=== PATIENT | female | born 1935 | race Caucasian/White ===

== ENCOUNTER → 2016-12-31 | Outpatient (CLI) | payer MEDICARE ==
[~2016-12-31] MED LIST: ASPI325T PO; AZOR5TAB2 PO; CALC-137 PO; CHOL50006 PO; CROM5.2S; DENO60P SC; LORTA5 PO; METO50CR PO; POTA99TA12 PO; PROT40TA PO; TAB-TAB PO; Z.0.WALKERFRONT; ZETI10TA5 PO; ZOFR4TAB3 SL
[2016-12-31 12:32] LABS: HDL CHOLESTEROL 44.8 MG/DL (40.0-60.0)
== END ==
LOC: ELAB 10:26
PROVIDERS: ATTEND Family Medicine
DX: E78.2 Mixed hyperlipidemia (principal)
CPT/HCPCS: 36415; 80061

== ENCOUNTER 2017-08-19 20:44 | Observation (INO) | payer MEDICARE ==
[~2017-08-19] VITALS: Ht 162.6 cm; Wt 75.0 kg
[2017-08-19 20:45] VITALS: BP 224/98; PULSE 102; RESP 18; TEMP 98.2; O2SAT 97
[2017-08-19 20:55] VITALS: RESP 18; O2SAT 97
[2017-08-19] MEDS ORDERED: SODIUM CHLORIDE 0.9% FLUSH 10 ML FLUSH IVF PRN (21:00)
--- NOTE | 2017-08-19 21:01 | PD ---
HPI Chief Complaint: Cardiac Complaint Time Seen by Provider: 20:52 Travel History International Travel<30 days: No Contact w/Intl Traveler<30days: No Traveled to known affect area: No History of Present Illness HPI 82-year-old female presents to the emergency department from home by EMS transport for evaluation of palpitations. According the patient and the paramedics patient was in her usual state of fair health when this evening after dinner around 7 PM she started noticing palpitations. Patient has history of palpitations. Patient states due to the duration of her palpitations she decided to call EMS to be evaluated. Upon EMS arrival patient was found to be in bigeminy with a sinus tachycardia which resolves spontaneously and then in route had 3 sequential unifocal PVCs. Patient denies having any chest pain or shortness of breath. Patient denies any referred neck jaw back shoulder arm mid scapular abdominal pain. Patient denies any recent long distance travel protracted bedrest or surgical procedure. Patient does have history of hypertension and has not taken her evening dose of metoprolol or lisinopril. Patient also has history of left-sided breast cancer that has been monitored by Dr. Schmid and continues to take Anastrozole. Patient was last seen by her oncologist May 2017. Patient states yesterday she thought she was developing a respiratory illness with sore throat, cough, and congestion. Patient has not had these symptoms today. Patient did not have influenza vaccine for this season. Patient was identified en route to be hypertensive. Patient also has history of GERD basal cell skin cancer dyslipidemia*arthritis osteoporosis pulmonary embolism postsurgical 1998 appendectomy left breast lumpectomy left breast biopsy radiation left breast and pelvis tonsillectomy and adenoidectomy colonoscopy partial thyroidectomy left knee replacement hysterectomy tubal ligation. Patient reports multiple antibiotic allergies. 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 Patient feels well at this time and reports that she feels that she can be discharged to home. [facility] Past Medical History Narrative Medical GERD basal cell skin cancer dyslipidemia*arthritis osteoporosis pulmonary embolism postsurgical 1998 appendectomy left breast lumpectomy left breast biopsy radiation left breast and pelvis tonsillectomy and adenoidectomy colonoscopy partial thyroidectomy left knee replacement hysterectomy tubal ligation; nursing notes reviewed. Cancer: Yes (skin cancers) Cardiovascular Problems: Yes (occ pvc) High Cholesterol: Yes Diabetes: No Diminished Hearing: No Endocrine: Yes Gastrointestinal Disorders: Yes (reflux) GERD: Yes Genitourinary: Yes (cystitis in the past man yrs ago ) Hepatitis: No Hiatal Hernia: Yes (small) Hypertension: Yes Immune Disorder: No Musculoskeletal: Yes (back and neck problems arthritis) Neurologic: No Psychiatric: No Reproductive: No Respiratory: Yes (hx of pulmonary embolous) Thyroid Disease: Yes Tubal Ligation: Yes Past Surgical History Abdominal Surgery: Yes (appendectomy) AICD: No Appendectomy: Yes Body Medical Devices: vega lens implants Endocrine Surgery: Yes (partial thyroidectomy) Eye Surgery: Yes (vega cataract removal ) Gynecologic Surgery: Yes (partial hysterectomy tubaligation) Hysterectomy: Yes Joint Replacement: No Oral Surgery: Yes (t and a) Pacemaker: No Tonsillectomy: Yes Other Surgery: Yes Social History Alcohol Use: No Tobacco Use: No Substance Use: No Allergies-Medications (Allergen,Severity, Reaction): Coded Allergies: cefepime (Unverified Allergy, Severe, gi upset, 08/19/17) ceftaroline fosamil (Unverified Allergy, Severe, gi upset, 08/19/17) cyclosporine (Unverified Allergy, Severe, severe gi upset, 08/19/17) erythromycin base (Unverified Allergy, Intermediate, VOMITINIG, 08/19/17) Sulfa (Sulfonamide Antibiotics) (Unverified Allergy, Mild, HIVES, 08/19/17) doxycycline (Unverified Allergy, Mild, HIVES, 08/19/17) GI UPSET minocycline (Unverified Allergy, Mild, HIVES, 08/19/17) GI UPSET nitrofurantoin (Unverified Allergy, Mild, HIVES, 08/19/17) penicillin G (Unverified Allergy, Mild, HIVES, 08/19/17) tigecycline (Unverified Allergy, Mild, HIVES, 08/19/17) GI UPSET Reported Meds & Prescriptions Reported Meds & Active Scripts Active Reported [Potassium 99 Mg Tab] 99 Mg PO DAILY Prolia Inj (Denosumab) 60 Mg/Ml Inj 60 Mg SQ Q180D Vitamin D-1000 (Cholecalciferol) 1,000 Unit Tab 2,000 Units PO BID Calcium (Calcium Carbonate) 600 Mg Calcium (1500 Mg) Tab 1,200 Mg PO BID Preservision Areds (Multiple Vitamins W/ Minerals) 1 Tab 1 Tab PO BID Pantoprazole (Pantoprazole Sodium) 40 Mg Tab 40 Mg PO DAILY Anastrozole 1 Mg Tab 1 Mg PO HS Amlodipine (Amlodipine Besylate) 5 Mg Tab 5 Mg PO DAILY Lisinopril 20 Mg Tab 20 Mg PO BID Metoprolol Succinate ER 24 HR (Metoprolol Succinate) 100 Mg Tab 100 Mg PO DAILY Review of Systems Except as stated in HPI: all other systems reviewed are Neg Physical Exam Narrative GENERAL: Well-developed well-nourished female in no acute distress no respiratory distress SKIN: Warm and dry. HEAD: Normocephalic. EYES: No scleral icterus. No injection or drainage. NECK: Supple, trachea midline. No JVD or lymphadenopathy. CARDIOVASCULAR: Regular rate and rhythm without murmurs, gallops, or rubs. RESPIRATORY: Breath sounds equal bilaterally. No accessory muscle use. GASTROINTESTINAL: Abdomen soft, non-tender, nondistended. MUSCULOSKELETAL: No cyanosis, or edema. BACK: Nontender without obvious deformity. No CVA tenderness. Data Data Last Documented VS Vital Signs Date Time Temp Pulse Resp B/P (MAP) Pulse Ox O2 Delivery O2 Flow Rate FiO2 08/19/17 23:01 88 18 174/80 (111) 96 Room Air 08/19/17 20:45 98.2 Orders Orders Electrocardiogram (08/19/17 20:53) Complete Blood Count With Diff (08/19/17 20:53) Comprehensive Metabolic Panel (08/19/17 20:53) Magnesium (Mg) (08/19/17 20:53) Ckmb (Isoenzyme) Profile (08/19/17 20:53) Troponin I (08/19/17 20:53) Act Partial Throm Time (Ptt) (08/19/17 20:53) Prothrombin Time / Inr (Pt) (08/19/17 20:53) Urinalysis - C+S If Indicated (08/19/17 20:53) Chest, Single Ap (08/19/17 20:53) Ecg Monitoring (08/19/17 20:53) Iv Access Insert/Monitor (08/19/17 20:53) Oximetry (08/19/17 20:53) Sodium Chloride 0.9% Flush (Ns Flush) (08/19/17 21:00) Lactic Acid (08/19/17 20:54) Influenzae A/B Antigen (08/19/17 20:54) Thyroid Stimulating Hormone (08/19/17 20:53) Aspirin Chew (Aspirin Chew) (08/19/17 21:45) Potassium Chloride (Kcl) (08/19/17 23:45) Sodium Chlorid 0.9% 500 Ml Inj (Ns 500 M (08/19/17 23:45) Metoprolol Succinate Er (Toprol Xl) (08/19/17 23:45) Enalaprilat Inj (Vasotec Inj) (08/20/17 00:15) Labetalol Inj (Trandate Inj) (08/20/17 01:15) Admit Order (Ed Use Only) (08/20/17 ) Water Filter Cleaner / Telemetry [id number] (08/20/17 01:12) Activity Oob With Assistance (08/20/17 01:12) Notify Dr: Other (08/20/17 01:12) Labs Laboratory Tests Test 08/19/17 21:10 08/19/17 21:11 08/19/17 21:17 Lactic Acid Level 1.5 mmol/L White Blood Count 8.9 TH/MM3 Red Blood Count 3.91 MIL/MM3 Hemoglobin 11.3 GM/DL Hematocrit 34.1 % Mean Corpuscular Volume 87.2 FL Mean Corpuscular Hemoglobin 28.8 PG Mean Corpuscular Hemoglobin Concent 33.1 % Red Cell Distribution Width 14.4 % Platelet Count 178 TH/MM3 Mean Platelet Volume 9.5 FL Neutrophils (%) (Auto) 62.3 % Lymphocytes (%) (Auto) 25.8 % Monocytes (%) (Auto) 9.2 % Eosinophils (%) (Auto) 1.8 % Basophils (%) (Auto) 0.9 % Neutrophils # (Auto) 5.6 TH/MM3 Lymphocytes # (Auto) 2.3 TH/MM3 Monocytes # (Auto) 0.8 TH/MM3 Eosinophils # (Auto) 0.2 TH/MM3 Basophils # (Auto) 0.1 TH/MM3 CBC Comment DIFF FINAL Differential Comment Prothrombin Time 9.9 SEC Prothromb Time International Ratio 1.0 RATIO Activated Partial Thromboplast Time 23.6 SEC Blood Urea Nitrogen 26 MG/DL Creatinine 1.28 MG/DL Random Glucose 153 MG/DL Total Protein 6.8 GM/DL Albumin 3.5 GM/DL Calcium Level 9.6 MG/DL Magnesium Level 1.8 MG/DL Alkaline Phosphatase 105 U/L Aspartate Amino Transf (AST/SGOT) 14 U/L Alanine Aminotransferase (ALT/SGPT) 23 U/L Total Bilirubin 0.4 MG/DL Sodium Level 140 MEQ/L Potassium Level 3.2 MEQ/L Chloride Level 101 MEQ/L Carbon Dioxide Level 30.4 MEQ/L Anion Gap 9 MEQ/L Estimat Glomerular Filtration Rate 40 ML/MIN Total Creatine Kinase 73 U/L Troponin I LESS THAN 0.02 NG/ML Thyroid Stimulating Hormone 3rd Gen 3.880 uIU/ML Urine Color LIGHT-YELLOW Urine Turbidity CLEAR Urine pH 7.0 Urine Specific [place] 1.006 Urine Protein NEG mg/dL Urine Glucose (UA) NEG mg/dL Urine Ketones NEG mg/dL Urine Occult Blood NEG Urine Nitrite NEG Urine Bilirubin NEG Urine Urobilinogen LESS THAN 2.0 MG/DL Urine Leukocyte Esterase SMALL Urine RBC LESS THAN 1 /hpf Urine WBC 2 /hpf Urine Bacteria RARE /hpf Microscopic Urinalysis Comment CULT NOT INDICATED MDM Medical Decision Making Medical Screen Exam Complete: Yes Emergency Medical Condition: Yes Medical Record Reviewed: Yes Interpretation(s) EKG: Sinus tachycardia first-degree AV block no acute ST elevation nonspecific ST segment flattening Differential Diagnosis Palpitations, arrhythmia, electrolyte disturbance, ACS, MO, PE, pneumonia, sepsis, influenza Narrative Course Patient placed on manager monitoring with continuous pulse oximetry; specimens collected and sent for resulting; EKG performed reveals no acute ST elevation or ectopy at this time. We'll obtain repeat blood pressure as patient hypertensive upon arrival. Patient has not taken evening antihypertensive medications as of this time. Patient with hypokalemia In view of duration of symptoms which is atypical for her unclear etiology to explain duration of bigeminy will admit for observation for further evaluation and serial enzymes; case discussed with Dr. White Physician Communication Physician Communication discussed with [facility] for obs Diagnosis Primary Impression: Bigeminy Admitting Information Admitting Physician Requests: Observation Toña Seo MD Aug 19, 2017 21:01
[2017-08-19] MEDS ORDERED: VITA1000 PO (21:02)
[2017-08-19] MEDS ORDERED: DENO60P SQ (21:02)
[2017-08-19] MEDS ORDERED: METO1TAB43 PO (21:02)
[2017-08-19] MEDS ORDERED: PANT40TA3 PO (21:02)
[2017-08-19] MEDS ORDERED: CALC600T5 PO (21:02)
[2017-08-19] MEDS ORDERED: ANAS1TAB PO (21:02)
[2017-08-19] MEDS ORDERED: AMLO5TAB2 PO (21:02)
[2017-08-19] MEDS ORDERED: LISI-515 PO (21:02)
[2017-08-19] MEDS ORDERED: OCUVTAB4 PO (21:02)
[2017-08-19] MEDS ORDERED: POTASSIUM 99 MG TAB PO (21:03)
[2017-08-19 21:25] LABS: AUTOMATED NEUTROPHIL # 5.6 TH/MM3 (1.8-7.7); BASOPHIL # 0.1 TH/MM3 (0-0.2); BASOPHIL % 0.9 % (0.0-2.0); EOSINOPHIL # 0.2 TH/MM3 (0-0.4); EOSINOPHIL % 1.8 % (0.0-4.0); HEMATOCRIT 34.1 % (35.0-46.0); HEMOGLOBIN 11.3 GM/DL (11.6-15.3); LYMPH % 25.8 % (9.0-44.0); LYMPHOCYTE # 2.3 TH/MM3 (1.0-4.8); MEAN CELL VOLUME 87.2 FL (80.0-100.0); MEAN CORPUSCULAR HEMOGLOBIN 28.8 PG (27.0-34.0); MEAN CORPUSCULAR HGB CONC 33.1 % (32.0-36.0); MEAN PLATELET VOLUME 9.5 FL (7.0-11.0); MONO % 9.2 % (0.0-8.0); MONOCYTE # 0.8 TH/MM3 (0-0.9); NEUT % 62.3 % (16.0-70.0); PLATELET COUNT 178 TH/MM3 (150-450); RED BLOOD COUNT 3.91 MIL/MM3 (4.00-5.30); RED CELL DISTRIBUTION WIDTH 14.4 % (11.6-17.2); WHITE BLOOD COUNT 8.9 TH/MM3 (4.0-11.0)
[2017-08-19 21:38] LABS: PROTHROMBIN TIME - PATIENT 9.9 SEC (9.8-11.6)
[2017-08-19] MEDS ORDERED: ASPIRIN 81 MG CHEW TAB CHEW ONE (21:45)
[2017-08-19 21:52] LABS: BACTERIA, URINE RARE /hpf; BILIRUBIN, URINE NEG (NEG); BLOOD, URINE NEG (NEG); GLUCOSE,URINE NEG (NEG); KETONE, URINE NEG (NEG); NITRITE,URINE NEG (NEG); URINE COLOR LIGHT-YELLOW (YELLW/STRAW); URINE LEUKOCYTE ESTERASE SMALL (NEG)
[2017-08-19 21:53] LABS: ALBUMIN 3.5 GM/DL (3.4-5.0); AST (GOT) 14 U/L (15-37); BICARBONATE 30.4 MEQ/L (21.0-32.0); BLOOD UREA NITROGEN 26 MG/DL (7-18); CALCIUM 9.6 MG/DL (8.5-10.1); CHLORIDE 101 MEQ/L (98-107); CREATININE 1.28 MG/DL (0.50-1.00); GLOMERULAR FILTRATION RATE 40 ML/MIN (>89); GLUCOSE,RANDOM 153 MG/DL (74-106); MAGNESIUM 1.8 MG/DL (1.5-2.5); SODIUM (NA) 140 MEQ/L (136-145)
[2017-08-19 21:54] LABS: ALT (GPT) 23 U/L (10-53)
--- NOTE | 2017-08-19 21:54 | RADRPT ---
EXAM DATE/TIME: 08/19/2017 21:23 [place] COMPARISON: No previous studies available for comparison. INDICATIONS : Heart palpitations. MEDICAL HISTORY : Carcinoma, breast. Pulmonary embolism. SURGICAL HISTORY : Left breast, lumpectomy. ENCOUNTER: Initial ACUITY: 1 day PAIN SCORE: 0/10 LOCATION: chest FINDINGS: Single AP view of the chest. The lungs are clear. Cardiomediastinal silhouette within normal limits. No evidence of pleural effusion or pneumothorax. CONCLUSION: No acute cardiopulmonary disease identified. Ariel Bennett MD on August 19, 2017 at 21:51 Board Certified Radiologist. This report was verified electronically.
[2017-08-19 22:04] LABS: ALKALINE PHOSPHATASE 105 U/L (45-117); TOTAL BILIRUBIN ADULT 0.4 MG/DL (0.2-1.0); TOTAL PROTEIN 6.8 GM/DL (6.4-8.2); TROPONIN I LESS THAN 0.02 NG/ML (0.02-0.05)
[2017-08-19 23:01] VITALS: BP 174/80; PULSE 88; RESP 18; O2SAT 96
[2017-08-19] MEDS ORDERED: METOPROLOL SUCCINATE 50 MG EXTENDED RELEASE TAB PO ONE (23:45)
[2017-08-19] MEDS ORDERED: LISINOPRIL 20 MG TAB PO ONE (23:45)
[2017-08-19] MEDS ORDERED: POTASSIUM CHLORIDE 20 MEQ CONTROLLED RELEASE TAB PO ONE (23:45)
[2017-08-19] MEDS ORDERED: SODIUM CHLORID 0.9% 500 ML INJ 500 ML IV ONE (23:45)
[2017-08-20] VITALS (10 sets, daily range): BP systolic 171–195; BP diastolic 73–86; PULSE 66–81; RESP 16–22; TEMP 97.8–98.6; O2SAT 96–99
[2017-08-20] MEDS ORDERED: ENALAPRILAT 1.25 MG/ML VIAL IV PUSH ONE (00:15)
[2017-08-20] MEDS ORDERED: LABETALOL HCL 100 MG/20 ML VIAL IV PUSH ONE (01:15)
[2017-08-20] MEDS ORDERED: BISACODYL 10 MG SUPP RECTAL PRN (01:30)
[2017-08-20] MEDS ORDERED: ACETAMINOPHEN 325 MG TAB PO PRN (01:30)
[2017-08-20] MEDS ORDERED: ONDANSETRON HCL 4 MG/2 ML VIAL IVP PRN (01:30)
[2017-08-20] MEDS ORDERED: METOPROLOL TARTRATE 50 MG TAB PO ONE (01:30)
[2017-08-20] MEDS ORDERED: MAGNESIUM HYDROXIDE SUSP 30 ML CUP PO PRN (01:30)
[2017-08-20] MEDS ORDERED: ACETAMINOPHEN/HYDROcodone 325 MG/5 MG TAB PO PRN (01:30)
[2017-08-20] MEDS ORDERED: SENNOSIDES 8.6 MG TAB PO PRN (01:30)
[2017-08-20] MEDS ORDERED: ACETAMINOPHEN/HYDROcodone 325 MG/10 MG TAB PO PRN (01:30)
[2017-08-20] MEDS ORDERED: LACTULOSE SYRUP 20 GM/30 ML CUP PO PRN (01:30)
[2017-08-20] MEDS ORDERED: SODIUM CHLORIDE 0.9% FLUSH 10 ML FLUSH IV FLUSH PRN (01:30)
--- NOTE | 2017-08-20 02:56 | HHI.HP ---
[facility] Rita Edmondson MD Admission Diagnosis palpitations; hypokalemia; htn Diagnoses: (1) Palpitations Diagnosis: Principal (2) Hypokalemia Diagnosis: Principal (3) Renal insufficiency Diagnosis: Principal (4) HTN (hypertension) Diagnosis: Principal Travel History International Travel<30 Days: No Contact w/Intl Traveler <30 Da: No Traveled to Known Affected Are: No History of Present Illness This is an 82-year-old female with a PMH of HTN, Hyperlipidemia, Breast CA and h /o Skin Cancer who was brought to the ER by EMS secondary to c/o palpitations. Pt reports previous history of palpitations w/ abnormal EKG for which she follows w/ Dr. Peguero, however states that this evening palpitations lasted significantly longer than usual approx 1hr. Sudden onset, constant, moderate severity, associated w/ mild SOB. Upon EMS arrival, pt noted to have Sinus Tachycardia w/ bigeminy and 3 PVC's. Pt denies chest pain, cough, nausea, vomiting, diarrhea or recent sick contacts. On arrival, BP 224/98, HR 102, O2 sat 97% on RA, Afebrile. CBC at baseline. K+ 3.2. Creatinine 1.28, producing 1.04 on 05/30/17. Troponin negative. INR 1.0. UA negative. CXR with no acute findings. S/p Vasotec/Labetalol in ER w/ mild improvement in BP. Review of Systems Except as stated in HPI: all other systems reviewed are Neg ROS: 14 point review of systems otherwise negative. Past Family Social History Past Medical History PMH: HTN, Hyperlipidemia, Breast CA and h/o Skin Cancer Past Surgical History PAST SURGICAL HISTORY: Appendectomy, And lateral Lens Implant, Partial Thyroidectomy, Cataract Surgery, Hysterectomy, Tubal Ligation, Tonsillectomy Allergies: Coded Allergies: cefepime (Unverified Allergy, Severe, gi upset, 08/19/17) ceftaroline fosamil (Unverified Allergy, Severe, gi upset, 08/19/17) cyclosporine (Unverified Allergy, Severe, severe gi upset, 08/19/17) erythromycin base (Unverified Allergy, Intermediate, VOMITINIG, 08/19/17) Sulfa (Sulfonamide Antibiotics) (Unverified Allergy, Mild, HIVES, 08/19/17) doxycycline (Unverified Allergy, Mild, HIVES, 08/19/17) GI UPSET minocycline (Unverified Allergy, Mild, HIVES, 08/19/17) GI UPSET nitrofurantoin (Unverified Allergy, Mild, HIVES, 08/19/17) penicillin G (Unverified Allergy, Mild, HIVES, 08/19/17) tigecycline (Unverified Allergy, Mild, HIVES, 08/19/17) GI UPSET Family History PAST FAMILY HISTORY: Reviewed. No h/o DM or CAD Social History PAST SOCIAL HISTORY: Negative for alcohol, tobacco or drugs. Physical Exam Vital Signs Vital Signs Date Time Temp Pulse Resp B/P (MAP) Pulse Ox O2 Delivery O2 Flow Rate FiO2 08/20/17 02:18 97.9 81 16 195/86 (122) 97 08/20/17 01:51 08/20/17 01:51 72 18 178/76 (110) 99 Room Air 08/19/17 23:01 88 18 174/80 (111) 96 Room Air 08/19/17 20:55 18 97 Room Air 08/19/17 20:45 98.2 102 18 224/98 (140) 97 Physical Exam PE: GENERAL: Very pleasant elderly white female in no acute distress. HEENT: PERRLA, EOMI. No scleral icterus or conjunctival pallor. No lid lag or facial droop. CARDIOVASCULAR: Regular rate and rhythm. No obvious murmurs to auscultation. No chest tenderness to palpation. RESPIRATORY: No obvious rhonchi or wheezing. Clear to auscultation. Breath sounds equal bilaterally. GASTROINTESTINAL: Abdomen soft, non-tender, nondistended. BS normal. MUSCULOSKELETAL: Extremities without clubbing, cyanosis, or edema. No obvious deformities. NEUROLOGICAL: Awake, alert and oriented x4. No focal neurologic deficits. Moving both upper and lower extremities spontaneously. Laboratory Laboratory Tests Test 08/19/17 21:10 08/19/17 21:11 08/19/17 21:17 Lactic Acid Level 1.5 White Blood Count 8.9 Red Blood Count 3.91 Hemoglobin 11.3 Hematocrit 34.1 Mean Corpuscular Volume 87.2 Mean Corpuscular Hemoglobin 28.8 Mean Corpuscular Hemoglobin Concent 33.1 Red Cell Distribution Width 14.4 Platelet Count 178 Mean Platelet Volume 9.5 Neutrophils (%) (Auto) 62.3 Lymphocytes (%) (Auto) 25.8 Monocytes (%) (Auto) 9.2 Eosinophils (%) (Auto) 1.8 Basophils (%) (Auto) 0.9 Neutrophils # (Auto) 5.6 Lymphocytes # (Auto) 2.3 Monocytes # (Auto) 0.8 Eosinophils # (Auto) 0.2 Basophils # (Auto) 0.1 CBC Comment DIFF FINAL Differential Comment Prothrombin Time 9.9 Prothromb Time International Ratio 1.0 Activated Partial Thromboplast Time 23.6 Blood Urea Nitrogen 26 Creatinine 1.28 Random Glucose 153 Total Protein 6.8 Albumin 3.5 Calcium Level 9.6 Magnesium Level 1.8 Alkaline Phosphatase 105 Aspartate Amino Transf (AST/SGOT) 14 Alanine Aminotransferase (ALT/SGPT) 23 Total Bilirubin 0.4 Sodium Level 140 Potassium Level 3.2 Chloride Level 101 Carbon Dioxide Level 30.4 Anion Gap 9 Estimat Glomerular Filtration Rate 40 Total Creatine Kinase 73 Troponin I LESS THAN 0.02 Thyroid Stimulating Hormone 3rd Gen 3.880 Urine Color LIGHT-YELLOW Urine Turbidity CLEAR Urine pH 7.0 Urine Specific [place] 1.006 Urine Protein NEG Urine Glucose (UA) NEG Urine Ketones NEG Urine Occult Blood NEG Urine Nitrite NEG Urine Bilirubin NEG Urine Urobilinogen LESS THAN 2.0 Urine Leukocyte Esterase SMALL Urine RBC LESS THAN 1 Urine WBC 2 Urine Bacteria RARE Microscopic Urinalysis Comment CULT NOT INDICATED Date/Time Source Procedure Growth Status 08/19/17 21:11 Nasal Washing Influenza Types A,B Antigen (NINA) - Final NEGATIVE FOR FLU A AND B ANTIGEN.... Complete Result Diagram: 08/19/17211008/19/172110 Caprini VTE Risk Assessment Caprini VTE Risk Assessment: No/Low Risk (score <= 1) Caprini Risk Assessment Model Point Value = 1 Point Value = 2 Point Value = 3 Point Value = 5 Age 41-60 Minor surgery BMI > 25 kg/m2 Swollen legs Varicose veins or History of unexplained or recurrent spontaneous Oral contraceptives or hormone replacement Sepsis (< 1 month) Serious lung disease, including pneumonia (< 1 month) Abnormal pulmonary function Acute myocardial infarction Congestive heart failure (< 1 month) History of inflammatory bowel disease Medical patient at bed rest Age 61-74 Arthroscopic surgery Major open surgery (> 45 min) Laparoscopic surgery (> 45 min) Malignancy Confined to bed (> 72 hours) Immobilizing plaster cast Central venous access Age >= 75 History of VTE Family history of VTE Factor V Leiden Prothrombin [id number] Lupus anticoagulant Anticardiolipin antibodies Elevated serum homocysteine Heparin-induced thrombocytopenia Other congenital or acquired thrombophilia Stroke (< 1 month) Elective arthroplasty Hip, pelvis, or leg fracture Acute spinal cord injury (< 1 month) Prophylaxis Regimen Total Risk Factor Score Risk Level Prophylaxis Regimen 0-1 Low Early ambulation 2 Moderate Order ONE of the following: *Sequential Compression Device (SCD) *Heparin 5000 units SQ BID 3-4 Higher Order ONE of the following medications: *Heparin 5000 units SQ TID *Enoxaparin/Lovenox 40 mg SQ daily (WT < 150 kg, CrCl > 30 mL/min) *Enoxaparin/Lovenox 30 mg SQ daily (WT < 150 kg, CrCl > 10-29 mL/min) *Enoxaparin/Lovenox 30 mg SQ BID (WT < 150 kg, CrCl > 30 mL/min) AND/OR *Sequential Compression Device (SCD) 5 or more Highest Order ONE of the following medications: *Heparin 5000 units SQ TID (Preferred with Epidurals) *Enoxaparin/Lovenox 40 mg SQ daily (WT < 150 kg, CrCl > 30 mL/min) *Enoxaparin/Lovenox 30 mg SQ daily (WT < 150 kg, CrCl > 10-29 mL/min) *Enoxaparin/Lovenox 30 mg SQ BID (WT < 150 kg, CrCl > 30 mL/min) AND *Sequential Compression Device (SCD) Assessment and Plan Problem List: (1) Palpitations ICD Code: R00.2 - Palpitations (2) Hypokalemia ICD Code: E87.6 - Hypokalemia (3) Renal insufficiency ICD Code: N28.9 - Disorder of kidney and ureter, unspecified (4) HTN (hypertension) ICD Code: I10 - Essential (primary) hypertension Assessment and Plan A/P: 1. Palpitations: sudden onset of palpitations x1 hr w/ dysrhythmia. Admit for Observation, place on telemetry. Initial trop negative, check serial cardiac enzymes to eval for possible underlying ischemia. Check Echo to eval for valvular abnormality/cardiomyopathy. Follows w/ Dr. Peguero, consult cardiology as needed for further recommendations. 2. Hypokalemia: K+ 3.2, s/p replacement in ER, possibly contributing to dysrhythmia. Recheck and replace labs as needed. 3. Renal Insufficiency: Acute on Chronic. Creatinine 1.28, previously 1.04 on 05/30/17. IVF for hydration, repeat labs in a.m. 4. HTN: Uncontrolled. BP 224/98, HR 102 on arrival, s/p Labetalol/Vasotec w/ some improvement. Give additional Metoprolol, restart home medications, monitor BP. 5. DVT Prophylaxis: SCD/Teds. 6. Social work for d/c planning as needed. 7. Labs/records/imaging reviewed, case discussed w/ ER physician at length. Ramandeep White MD Aug 20, 2017 02:56
[2017-08-20 07:33] LABS: ALBUMIN 3.4 GM/DL (3.4-5.0); ALT (GPT) 21 U/L (10-53); AST (GOT) 15 U/L (15-37); BICARBONATE 28.4 MEQ/L (21.0-32.0); BLOOD UREA NITROGEN 21 MG/DL (7-18); CALCIUM 9.3 MG/DL (8.5-10.1); CHLORIDE 105 MEQ/L (98-107); CREATININE 1.01 MG/DL (0.50-1.00); GLOMERULAR FILTRATION RATE 53 ML/MIN (>89); GLUCOSE,RANDOM 93 MG/DL (74-106); SODIUM (NA) 141 MEQ/L (136-145)
[2017-08-20 07:37] LABS: ALKALINE PHOSPHATASE 110 U/L (45-117); TOTAL BILIRUBIN ADULT 0.5 MG/DL (0.2-1.0); TROPONIN I 0.06 NG/ML (0.02-0.05)
--- NOTE | 2017-08-20 09:17 | HHI.PR ---
Subjective Remarks Follow up for palpitations. The patient reports feeling better today. No further palpitations this morning. Denies any chest pain or shortness of breath. Telemetry reviewed, unremarkable today. Objective Vitals Vital Signs Date Time Temp Pulse Resp B/P (MAP) Pulse Ox O2 Delivery O2 Flow Rate FiO2 08/20/17 08:43 98.6 67 22 171/75 (107) 96 08/20/17 03:37 98.1 69 16 173/73 (106) 97 08/20/17 02:18 97.9 81 16 195/86 (122) 97 08/20/17 01:51 08/20/17 01:51 72 18 178/76 (110) 99 Room Air 08/19/17 23:01 88 18 174/80 (111) 96 Room Air 08/19/17 20:55 18 97 Room Air 08/19/17 20:45 98.2 102 18 224/98 (140) 97 I/O 08/19/17 08/19/17 08/19/17 08/20/17 08/20/17 08/20/17 06:59 14:59 22:59 06:59 14:59 22:59 # Voids 2 Result Diagram: 08/19/17211008/20/17 0641 Imaging Last Impressions Chest X-Ray 08/19/172052 Signed Impressions: Service Date/Time: Saturday, August 19, 2017 21:23 - CONCLUSION: No acute cardiopulmonary disease identified. Ariel Bennett MD Objective Remarks GENERAL: Well-nourished, well-developed pleasant female patient in [facility]. SKIN: Warm and dry. No rash. HEENT: Normocephalic. Atraumatic. Pupils equal and round. Mucous membranes pink and moist. NECK: Supple. Trachea midline. CARDIOVASCULAR: Regular rate and rhythm. S1, S2 noted. No murmur appreciated. RESPIRATORY: No accessory muscle use. Clear to auscultation. Breath sounds equal bilaterally. GASTROINTESTINAL: Abdomen soft, non-tender, nondistended. Normoactive bowel sounds x4. MUSCULOSKELETAL: No obvious deformities. Extremities without clubbing, cyanosis , or edema. NEUROLOGICAL: Awake and alert. No obvious cranial nerve deficits. Motor grossly within normal limits. Normal speech. PSYCHIATRIC: Appropriate mood and affect; insight and judgment normal. Medications and IVs Current Medications Medications (Trade) Dose Ordered Sig/Shira Route Start Time Stop Time Status Last Admin Sodium Chloride 1,000 ml @ 100 mls/hr Q10H IV 08/20/17 01:17 (NS Flush) 2 ml UNSCH PRN IV FLUSH 08/20/17 01:30 (NS Flush) 2 ml BID IV FLUSH 08/20/17 09:00 (Zofran Inj) 4 mg Q6H PRN IVP 08/20/17 01:30 (Tylenol) 650 mg Q6H PRN PO 08/20/17 01:30 (Lewis 5-325 Mg) 1 tab Q4H PRN PO 08/20/17 01:30 (Lewis 10-325 Mg) 1 tab Q4H PRN PO 08/20/17 01:30 (Zoila-Colace) 1 tab BID PO 08/20/17 09:00 (Milk Of Magnesia Liq) 30 ml Q12H PRN PO 08/20/17 01:30 (Senokot) 17.2 mg Q12H PRN PO 08/20/17 01:30 (Dulcolax Supp) 10 mg DAILY PRN RECTAL 08/20/17 01:30 (Lactulose Liq) 30 ml DAILY PRN PO 08/20/17 01:30 (Norvasc) 5 mg DAILY PO 08/20/17 09:00 (Arimidex) 1 mg HS PO 08/20/17 21:00 (Protonix) 40 mg DAILY PO 08/20/17 09:00 (Oscal) 1,000 mg BID PO 08/20/17 09:00 (Toprol Xl) 100 mg DAILY PO 08/20/17 09:00 A/P Problem List: (1) Palpitations ICD Code: R00.2 - Palpitations (2) Hypokalemia ICD Code: E87.6 - Hypokalemia (3) Renal insufficiency ICD Code: N28.9 - Disorder of kidney and ureter, unspecified (4) HTN (hypertension) ICD Code: I10 - Essential (primary) hypertension Assessment and Plan 82-year-old female with a PMH of HTN, Hyperlipidemia, Breast CA and h/o Skin Cancer who was brought to the ER by EMS secondary to c/o palpitations. Pt reports previous history of palpitations w/ abnormal EKG for which she follows w / Dr. Peguero, however states that this evening palpitations lasted significantly longer than usual approx 1hr. Palpitations with Bigeminy: sudden onset of palpitations x1 hr w/ dysrhythmia. Possibly secondary to hypokalemia. -Troponins 0.02 --> 0.06 -Check Echo to eval for valvular abnormality/cardiomyopathy. -Check nuclear stress test -monitor on telemetry -Follows w/ Dr. Peguero, consult cardiology as needed if stress test positive or continued arrhythmia. Hypokalemia: K+ 3.2, s/p replacement in ER, possibly contributing to dysrhythmia. -Repeat K 3.7. -Monitor and replace electrolytes as needed Renal Insufficiency: Acute on Chronic. Creatinine 1.28, previously 1.04 on . -Give IVF for hydration -repeat labs show improvement with Cr 1.01 -avoid nephrotoxins HTN: Uncontrolled. BP 224/98, HR 102 on arrival, s/p Labetalol/Vasotec w/ some improvement. Given additional Metoprolol -restart home medications including metoprolol succinate 100mg daily, norvasc 5mg daily, lisinopril 20mg bid -monitor BP, adjust antihypertensives as needed DVT Prophylaxis: SCD/Teds. Attending Statement patient was seen and examined today. presented to ER with palpitations. continue metoprolol. echo and stress test pending. rest of assessment and plan as noted above. Shereen Hung PA-C Aug 20, 2017 09:17 Anjelica Carranza MD Aug 20, 2017 14:00
[2017-08-20] MEDS: amLODIPine BESYLATE 5 MG TAB PO SCH (10:11)
[2017-08-20] MEDS: DOCUSATE SODIUM 50 MG/SENNA 8.6 MG TAB PO SCH ×2 (10:11→23:13)
[2017-08-20] MEDS: CALCIUM CARBONATE 1.25 GM (CA 500 MG) TAB PO SCH ×2 (10:11→23:13)
[2017-08-20] MEDS: PANTOPRAZOLE SOD 40 MG DELAYED RELEASE TAB PO SCH (10:11)
[2017-08-20] MEDS: SODIUM CHLORIDE 0.9% FLUSH 10 ML FLUSH IV FLUSH SCH ×2 (10:12→23:11)
[2017-08-20] MEDS: LISINOPRIL 20 MG TAB PO SCH ×2 (10:14→23:12)
[2017-08-20] MEDS: SODIUM CHLOR 0.9% 1000 ML INJ 1,000 ML IV SCH ×2 (11:22→21:17)
[2017-08-20] MEDS ORDERED: REGADENOSON INJ 0.4 MG/5 ML SYR ONE (13:47)
[2017-08-20] MEDS ORDERED: ENALAPRILAT 1.25 MG/ML VIAL IV PUSH PRN (16:00)
[2017-08-20] MEDS: METOPROLOL SUCCINATE 50 MG EXTENDED RELEASE TAB PO SCH (16:29)
--- NOTE | 2017-08-20 16:34 | EKG ---
Date Performed: 08/19/2017 Time Performed: 20:54:16 PTAGE: 82 years EKG: SINUS TACHYCARDIA WITH FIRST DEGREE AV BLOCK PROMINENT ST-T WAVE CHANGES, THESE ARE SUGGEST AMARI OF ISCHEMIA WHEN COMPARED TO THE PRIOR TRACING Clinical correlation is recommended ABNORMAL ECG PREVIOUS TRACING : 01/25/2014 09.04 DOCTOR: Prince Palacio Interpretating Date/Time 08/20/2017 16:33:35
--- NOTE | 2017-08-20 16:36 | RADRPT ---
EXAM DATE/TIME: 08/20/2017 13:43 [place] COMPARISON: No previous studies available for comparison. INDICATIONS : Mid chest pain with palpitations for one day. Angina. Abnormal EKG. DOSE: 26.1 mCi Tc99m Myoview at stress. 8.7 mCi Tc99m Myoview at rest. 0.4 mg Lexiscan STRESS SYMPTOMS: None. EJECTION FRACTION: > 70% MEDICAL HISTORY : Hypertension. Carcinoma, breast. SURGICAL HISTORY : Hysterectomy. Tonsillectomy. Appendectomy. ENCOUNTER: Initial ACUITY: 1 day PAIN SCALE: 4/10 LOCATION: Midsternal chest TECHNIQUE: The patient underwent pharmacologic stress with infusion of prescribed dose. Continuous ECG tracing was monitored during stress. Gated SPECT imaging was performed after stress and conventional SPECT i maging was performed at rest. The examination was performed on a SPECT/CT scanner, both attenuation and non-corrected datasets were reviewed. FINDINGS: DISTRIBUTION: The maximum perfused segment at stress is in the lateral wall. PERFUSION STUDY: The pattern of perfusion at stress is within normal limits. GATED STUDY: There is intact wall motion and thickening without hypokinetic or dyskinetic segments. CONCLUSION: 1. No fixed or reversible defects to suggest ischemia or infarction. 2. Normal wall motion and calculated ejection fraction. RISK CATEGORY: Low (<1% Annual Mortality Rate) Desean Ram MD on August 20, 2017 at 16:30 Board Certified Radiologist. This report was verified electronically.
[2017-08-20] MEDS ORDERED: ANASTROZOLE 1 MG TAB PO SCH (21:00)
[2017-08-21 01:50] VITALS: BP 134/64; PULSE 68; RESP 18; TEMP 97.8; O2SAT 96
[2017-08-21 05:06] VITALS: BP 121/60; PULSE 67; RESP 18; TEMP 98; O2SAT 94
[2017-08-21 07:45] VITALS: PULSE 63
[2017-08-21 08:35] VITALS: BP 193/81; PULSE 65; RESP 18; TEMP 97.6; O2SAT 96
--- NOTE | 2017-08-21 08:47 | HHI.DCPOC ---
Discharge Care Plan Diagnosis: (1) Bigeminy (2) Palpitations Goals to Promote Your Health * To prevent worsening of your condition and complications * To maintain your health at the optimal level Directions to Meet Your Goals Take your medications as prescribed Follow your dietary instruction Follow activity as directed Keep your appointments as scheduled Take your immunizations and boosters as scheduled If your symptoms worsen call your PCP, if no PCP go to Urgent Care Center or Emergency Room Smoking is Dangerous to Your Health. Avoid second hand smoke Call the 24-hour hour crisis hotline for domestic abuse at Shereen Hung PA-C Aug 21, 2017 08:47
[2017-08-21] MEDS: SODIUM CHLORIDE 0.9% FLUSH 10 ML FLUSH IV FLUSH SCH (08:48)
[2017-08-21] MEDS: DOCUSATE SODIUM 50 MG/SENNA 8.6 MG TAB PO SCH (08:49)
[2017-08-21] MEDS: SODIUM CHLOR 0.9% 1000 ML INJ 1,000 ML IV SCH (08:50)
[2017-08-21] MEDS: METOPROLOL SUCCINATE 50 MG EXTENDED RELEASE TAB PO SCH (08:50)
[2017-08-21] MEDS: PANTOPRAZOLE SOD 40 MG DELAYED RELEASE TAB PO SCH (08:50)
[2017-08-21] MEDS: LISINOPRIL 20 MG TAB PO SCH (08:50)
[2017-08-21] MEDS: amLODIPine BESYLATE 5 MG TAB PO SCH (08:51)
[2017-08-21] MEDS: CALCIUM CARBONATE 1.25 GM (CA 500 MG) TAB PO SCH (08:51)
[2017-08-21 08:53] LABS: AUTOMATED NEUTROPHIL # 5.9 TH/MM3 (1.8-7.7); BASOPHIL # 0.1 TH/MM3 (0-0.2); BASOPHIL % 0.7 % (0.0-2.0); EOSINOPHIL # 0.3 TH/MM3 (0-0.4); EOSINOPHIL % 3.3 % (0.0-4.0); HEMATOCRIT 37.4 % (35.0-46.0); HEMOGLOBIN 12.4 GM/DL (11.6-15.3); LYMPH % 25.1 % (9.0-44.0); LYMPHOCYTE # 2.4 TH/MM3 (1.0-4.8); MEAN CELL VOLUME 87.8 FL (80.0-100.0); MEAN CORPUSCULAR HGB CONC 33.1 % (32.0-36.0); MEAN PLATELET VOLUME 9.6 FL (7.0-11.0); MONO % 9.1 % (0.0-8.0); MONOCYTE # 0.9 TH/MM3 (0-0.9); NEUT % 61.8 % (16.0-70.0); PLATELET COUNT 192 TH/MM3 (150-450); RED BLOOD COUNT 4.26 MIL/MM3 (4.00-5.30); RED CELL DISTRIBUTION WIDTH 14.4 % (11.6-17.2); WHITE BLOOD COUNT 9.6 TH/MM3 (4.0-11.0)
[2017-08-21 09:09] LABS: ALBUMIN 3.2 GM/DL (3.4-5.0); AST (GOT) 16 U/L (15-37); BICARBONATE 28.7 MEQ/L (21.0-32.0); BLOOD UREA NITROGEN 27 MG/DL (7-18); CALCIUM 9.9 MG/DL (8.5-10.1); CHLORIDE 102 MEQ/L (98-107); CREATININE 1.21 MG/DL (0.50-1.00); GLOMERULAR FILTRATION RATE 43 ML/MIN (>89); GLUCOSE,RANDOM 90 MG/DL (74-106); SODIUM (NA) 138 MEQ/L (136-145)
[2017-08-21 09:13] LABS: ALKALINE PHOSPHATASE 104 U/L (45-117); ALT (GPT) 20 U/L (10-53); TOTAL BILIRUBIN ADULT 0.7 MG/DL (0.2-1.0); TOTAL PROTEIN 6.3 GM/DL (6.4-8.2)
--- NOTE | 2017-08-21 11:42 | HHI.DS ---
Discharge Summary Admission Date Aug 20, 2017 at 01:15 Discharge Date: Aug 21, 2017 Admitting Diagnosis palpitations; hypokalemia; htn (1) Palpitations ICD Code: R00.2 - Palpitations (2) Hypokalemia ICD Code: E87.6 - Hypokalemia (3) Renal insufficiency ICD Code: N28.9 - Disorder of kidney and ureter, unspecified (4) HTN (hypertension) ICD Code: I10 - Essential (primary) hypertension Procedures Patient in bed feels much better. Says no palpitations. Eating well. K is back to normal. Says her K is at times low and she is taking potassium supplements at times. Denies chest pain , sob, diaphoresis, n/v/d/c. Had stress test, echo normal. Brief History - From Admission This is an 82-year-old female with a PMH of HTN, Hyperlipidemia, Breast CA and h /o Skin Cancer who was brought to the ER by EMS secondary to c/o palpitations. Pt reports previous history of palpitations w/ abnormal EKG for which she follows w/ Dr. Peguero, however states that this evening palpitations lasted significantly longer than usual approx 1hr. Sudden onset, constant, moderate severity, associated w/ mild SOB. Upon EMS arrival, pt noted to have Sinus Tachycardia w/ bigeminy and 3 PVC's. Pt denies chest pain, cough, nausea, vomiting, diarrhea or recent sick contacts. On arrival, BP 224/98, HR 102, O2 sat 97% on RA, Afebrile. CBC at baseline. K+ 3.2. Creatinine 1.28, producing 1.04 on 05/30/17. Troponin negative. INR 1.0. UA negative. CXR with no acute findings. S/p Vasotec/Labetalol in ER with some improvement in BP. 82-year-old female with a PMH of HTN, Hyperlipidemia, Breast CA and h/o Skin Cancer who was brought to the ER by EMS secondary to c/o palpitations. Pt reports previous history of palpitations w/ abnormal EKG for which she follows w / Dr. Peguero, however states that this evening palpitations lasted significantly longer than usual approx 1hr. Palpitations with Bigeminy: sudden onset of palpitations x1 hr w/ dysrhythmia. Possibly secondary to hypokalemia. -Troponins 0.02 --> 0.06 -Check Echo to eval for valvular abnormality/cardiomyopathy. -Check nuclear stress test -monitor on telemetry -Follows w/ Dr. Peguero, consult cardiology as needed if stress test positive or continued arrhythmia. Hypokalemia: K+ 3.2, s/p replacement in ER, possibly contributing to dysrhythmia. -Repeat K 3.7. -Monitor and replace electrolytes as needed Renal Insufficiency: Acute on Chronic. Creatinine 1.28, previously 1.04 on . -Give IVF for hydration -repeat labs show improvement with Cr 1.01 -avoid nephrotoxins HTN: Uncontrolled. BP 224/98, HR 102 on arrival, s/p Labetalol/Vasotec w/ some improvement. Given additional Metoprolol -restart home medications including metoprolol succinate 100mg daily, norvasc 5mg daily, lisinopril 20mg bid -monitor BP, adjust antihypertensives as needed. Her BP however improved with restarting her BP meds. DVT Prophylaxis: SCD/Teds. CBC/BMP: 08/21/17 0755 08/21/17 0755 Significant Findings Laboratory Tests Test 08/19/17 21:10 08/19/17 21:11 08/19/17 21:17 08/20/17 06:41 Red Blood Count 3.91 MIL/MM3 (4.00-5.30) Hemoglobin 11.3 GM/DL (11.6-15.3) Hematocrit 34.1 % (35.0-46.0) Monocytes (%) (Auto) 9.2 % (0.0-8.0) Activated Partial Thromboplast Time 23.6 SEC (24.3-30.1) Blood Urea Nitrogen 26 MG/DL (7-18) 21 MG/DL (7-18) Creatinine 1.28 MG/DL (0.50-1.00) 1.01 MG/DL (0.50-1.00) Random Glucose 153 MG/DL (74-106) Aspartate Amino Transf (AST/SGOT) 14 U/L (15-37) Potassium Level 3.2 MEQ/L (3.5-5.1) Estimat Glomerular Filtration Rate 40 ML/MIN (>89) 53 ML/MIN (>89) Troponin I LESS THAN 0.02 NG/ML 0.06 NG/ML (0.02-0.05) Thyroid Stimulating Hormone 3rd Gen 3.880 uIU/ML (0.358-3.740) Urine Leukocyte Esterase SMALL (NEG) Urine Bacteria RARE /hpf (NONE) Test 08/20/17 12:01 08/21/17 07:55 Monocytes (%) (Auto) 9.1 % (0.0-8.0) Blood Urea Nitrogen 27 MG/DL (7-18) Creatinine 1.21 MG/DL (0.50-1.00) Total Protein 6.3 GM/DL (6.4-8.2) Albumin 3.2 GM/DL (3.4-5.0) Estimat Glomerular Filtration Rate 43 ML/MIN (>89) Imaging Last Impressions Myocardial Perfusion Scan Nuc Med 08/20/17 0000 Signed Impressions: Service Date/Time: Sunday, August 20, 2017 13:43 - CONCLUSION: 1. No fixed or reversible defects to suggest ischemia or infarction. 2. Normal wall motion and calculated ejection fraction. RISK CATEGORY: Low (<1%% Annual Mortality Rate) Desean Ram MD Chest X-Ray [id number]/[id number] Signed Impressions: Service Date/Time: Saturday, August 19, 2017 21:23 - CONCLUSION: No acute cardiopulmonary disease identified. Ariel Bennett MD PE at Discharge GENERAL: Well-nourished, well-developed pleasant female patient in [facility]. SKIN: Warm and dry. No rash. HEENT: Normocephalic. Atraumatic. Pupils equal and round. Mucous membranes pink and moist. NECK: Supple. Trachea midline. CARDIOVASCULAR: Regular rate and rhythm. S1, S2 noted. No murmur appreciated. RESPIRATORY: No accessory muscle use. Clear to auscultation. Breath sounds equal bilaterally. GASTROINTESTINAL: Abdomen soft, non-tender, nondistended. Normoactive bowel sounds x4. MUSCULOSKELETAL: No obvious deformities. Extremities without clubbing, cyanosis , or edema. NEUROLOGICAL: Awake and alert. No obvious cranial nerve deficits. Motor grossly within normal limits. Normal speech. PSYCHIATRIC: Appropriate mood and affect; insight and judgment normal. Pt update on day of discharge No palpitations during the night. Her BP was elevated during the night. Denies chest pain or sob. No n/v/d/c. With multiple questions all answere to best of my ability. Hospital Course 82-year-old female with a PMH of HTN, Hyperlipidemia, Breast CA and h/o Skin Cancer who was brought to the ER by EMS secondary to c/o palpitations. Pt reports previous history of palpitations w/ abnormal EKG for which she follows w / Dr. Peguero, however states that this evening palpitations lasted significantly longer than usual approx 1hr. Palpitations with Bigeminy: sudden onset of palpitations x1 hr w/ dysrhythmia. Possibly secondary to hypokalemia. Troponins 0.02 --> 0.06 Echo to eval for valvular abnormality/cardiomyopathy. Nuclear stress test negative Monitored on telemetry, reviewed by Dr Palacio, poss changes related to low K. Follows w/ Dr. Peguero, consult cardiology as needed if stress test positive or continued arrhythmia. Stress test normal and also ECHO normal. To follow up as OP with PCP and her cardiology Dr Peguero. Hypokalemia on admission K+ 3.2, s/p replaced possibly contributing to dysrhythmia. Repeat K 3.7. Monitor and replace electrolytes as needed With Renal Insufficiency: Acute on Chronic. Creatinine 1.28, previously 1.04 on 05/30/17. Kidney function back to normal. Received IVF for hydration , repeat labs show improvement with Cr 1.01 , cr at baseline at DC Avoid nephrotoxins HTN: Uncontrolled. BP 224/98, HR 102 on arrival, s/p Labetalol/Vasotec with some improvement. Given additional Metoprolol Restart home medications including metoprolol succinate 100mg daily, norvasc 5mg daily, lisinopril 20mg bid Monitor BP, adjust antihypertensives as needed. BP better controlled after she receives her home meds. Improved, discharged home in stable condition to follow up as OP with PCP and consultants. Pt Condition on Discharge: Stable Discharge Disposition: Discharge Home Discharge Time: > 30 minutes Discharge Instructions DIET: Follow Instructions for: Heart Healthy Diet Activities you can perform: Regular-No Restrictions Follow up Referrals: Cardiology - 1 Week with Kishan Peguero MD PCP Follow-up - 1 Week with Rita Edmondson MD Continued Medications: Amlodipine (Amlodipine) 5 Mg Tab 5 MG PO DAILY for Blood Pressure Management, #30 TAB 0 Refills Anastrozole (Anastrozole) 1 Mg Tab 1 MG PO HS for Breast Cancer, #30 TAB 0 Refills Calcium Carbonate (Calcium) 600 Mg Calcium (1500 Mg) Tab 1200 MG PO BID Cholecalciferol (Vitamin D-1000) 1,000 Unit Tab 2000 UNITS PO BID for Nutritional Supplement, #1 BOTTLE 0 Refills Denosumab Inj (Prolia Inj) 60 Mg/Ml Inj 60 MG SQ Q180D, #1 VIAL 0 Refills Lisinopril (Lisinopril) 20 Mg Tab 20 MG PO BID, #30 TAB 0 Refills Metoprolol Succinate ER 24 HR (Metoprolol Succinate ER 24 HR) 100 Mg Tab 100 MG PO DAILY, #30 TAB 0 Refills Multiple Vitamins W/ Minerals (Preservision Areds) 1 Tab 1 TAB PO BID for Nutritional Supplement, TAB 0 Refills Pantoprazole (Pantoprazole) 40 Mg Tab 40 MG PO DAILY for Reflux, #30 TAB 0 Refills Bárbara Maguire MD Aug 21, 2017 11:41
--- NOTE | 2017-08-21 12:01 | ECHRPT ---
Indication: CARDIOMYOPATHY CONCLUSIONS Normal left ventricular size. Mild concentric left ventricular hypertrophy. The left ventricular systolic function is normal with an estimated ejection fraction in the range of 55-60%. Mitral annular calcification is present. Trace mitral valve regurgitation. There is trace tricuspid valve regurgitation. The estimated pulmonary arterial pressure is 36 mmHg. The pulmonary valve is not well visualized. BP: / HR: Rhythm: MEASUREMENTS (Male / Female) Normal Values Technical Quality:Fair 2D ECHO LV Diastolic Diameter PLAX 4.3 cm 4.2 - 5.9 / 3.9 - 5.3 cm LV Systolic Diameter PLAX 3.2 cm IVS Diastolic Thickness 0.8 cm 0.6 - 1.0 / 0.6 - 0.9 cm LVPW Diastolic Thickness 0.8 cm 0.6 - 1.0 / 0.6 - 0.9 cm LV Relative Wall Thickness 0.4 RV Internal Dim ED PLAX 2.2 cm LA Systolic Diameter LX 3.1 cm 3.0 - 4.0 / 2.7 - 3.8 cm M-MODE AV Cusp Separation MM 1.9 cm DOPPLER Mitral E Point Velocity 71.6 cm/s Mitral A Point Velocity 93.8 cm/s Mitral E to A Ratio 0.8 TR Peak Velocity 280.0 cm/s TR Peak Gradient 31.4 mmHg FINDINGS LEFT VENTRICLE Normal left ventricular size. Mild concentric left ventricular hypertrophy. The left ventricular systolic function is normal with an estimated ejection fraction in the range of 55-60%. RIGHT VENTRICLE Normal right ventricular size and systolic function. LEFT ATRIUM The left atrial size is normal. RIGHT ATRIUM The right atrial size is normal. ATRIAL SEPTUM Normal atrial septal thickness without atrial level shunting by limited color doppler interrogation. AORTA The aortic root and proximal ascending aorta are normal in size on limited imaging. MITRAL VALVE Mitral annular calcification is present. Trace mitral valve regurgitation. AORTIC VALVE Trileaflet aortic valve. No aortic valve stenosis or regurgitation. TRICUSPID VALVE There is trace tricuspid valve regurgitation. The estimated pulmonary arterial pressure is 36 mmHg. PULMONARY VALVE The pulmonary valve is not well visualized. VESSELS The inferior vena cava is normal in size. PERICARDIUM No pericardial effusion. Robert Roblero MD, FACC (Electronically Signed) Final Date:21 August 2017 12:00
[2017-08-21 12:05] VITALS: PULSE 68
[2017-08-21 12:24] VITALS: BP 124/60
== END 2017-08-21 14:01 | disposition home or self-care (01) ==
LOC: NEPC 20:44 → NEDA 08-20 01:15 → NEPGCP 08-20 01:56
PROVIDERS: ADMIT Hospitalist; ATTEND Hospitalist
DX: R00.2 Palpitations (principal); I49.3 Ventricular premature depolarization; R94.31 Abnormal electrocardiogram [ECG] [EKG]; E87.6 Hypokalemia; E78.5 Hyperlipidemia, unspecified; I12.9 Hypertensive chronic kidney disease with stage 1 through stage 4 chronic kidney disease, or unspecified chronic kidney disease; N18.9 Chronic kidney disease, unspecified; K21.9 Gastro-esophageal reflux disease without esophagitis; M81.0 Age-related osteoporosis without current pathological fracture; Z86.711 Personal history of pulmonary embolism; Z85.828 Personal history of other malignant neoplasm of skin; Z85.3 Personal history of malignant neoplasm of breast; Z90.710 Acquired absence of both cervix and uterus; Z88.1 Allergy status to other antibiotic agents; Z96.652 Presence of left artificial knee joint
CPT/HCPCS: 71045; 78452; 80053; 81001; 82550; 83605; 83735; 84443; 84484; 85025; 85610; 85730; 87804; 93005; 93017; 93306; 96361; 96374; 96375; 96376; 99285; A9502; G0378; J2785; J7030; J7040